=== PATIENT | male | born 1985 | race Caucasian/White ===

== ENCOUNTER 2018-09-04 12:07 | Emergency (ER) | payer OTHER ==
[2018-09-04 12:21] VITALS: BMI 34.0
[2018-09-04] MEDS ORDERED: Sodium Chloride 0.9% 1,000 ML IV ONE (13:03)
[2018-09-04 13:21] LABS: EOS # 0.1 K/uL (0.0-0.7); EOS % 1.7 % (0.0-4.0); HEMOGLOBIN 16.2 g/dL (12.0-18.0); LYMPH # 2.2 K/uL (1.0-4.3); LYMPH % 53.1 % (20.0-40.0); MEAN CELL VOLUME 76.9 fL (80.0-94.0); MEAN CORPUSCULAR HEMOGLOBIN 25.5 pg (27.0-31.0); MEAN CORPUSCULAR HGB CONC 33.1 g/dL (33.0-37.0); MEAN PLATELET VOLUME 9.6 fL (7.2-11.7); MONO # 0.4 K/uL (0.0-0.8); MONO % 10.6 % (0.0-10.0); NEUT # 1.4 K/uL (1.8-7.0); NEUT % 33.6 % (50.0-75.0); NRBC % 0.1 % (0.0-2.0); RBC 6.35 Mil/uL (4.40-5.90); RED CELL DISTRIBUTION WIDTH 14.1 % (11.5-14.5); WHITE BLOOD COUNT 4.2 K/uL (4.8-10.8)
--- NOTE | 2018-09-04 13:35 | RAD ---
Date of service: 09/04/2018 HISTORY: Shortness of breath COMPARISON: No prior. TECHNIQUE: Chest PA and lateral FINDINGS: LINES AND TUBES: None. LUNG AND PLEURA: The lungs are well inflated and clear. No pleural effusion or pneumothorax. HEART AND MEDIASTINUM: The heart is not enlarged. No aortic atherosclerotic calcifications present. The hilar and mediastinal contours are within normal limits. SKELETAL STRUCTURES: The bony structures are within normal limits for the patient's age. VISUALIZED UPPER ABDOMEN: Normal. OTHER FINDINGS: None. IMPRESSION: No active pulmonary disease.
[2018-09-04 13:44] LABS: ALB/GLOB RATIO 1.4 (1.0-2.1); ALBUMIN 4.7 g/dL (3.5-5.0); ALT/SGPT 55 U/L (21-72); AST/SGOT 44 U/L (17-59); BLOOD UREA NITROGEN 12 mg/dL (9-20); CALCIUM 9.7 mg/dl (8.6-10.4); GFR NON-AFRICAN AMERICAN > 60
[2018-09-04 13:52] LABS: SQUAMOUS EPITHIAL 3 /hpf (0-5); URINE BILIRUBIN NEGATIVE (NEGATIVE); URINE BLOOD NEGATIVE (NEGATIVE); URINE CLARITY Hazy (Clear); URINE COLOR Yellow (YELLOW); URINE GLUCOSE (UA) NORMAL (Normal); URINE LEUKOCYTE ESTERASE NEG Leu/uL (Negative); URINE PROTEIN NEGATIVE (NEGATIVE)
--- NOTE | 2018-09-04 14:36 | C.PDOC ---
History Of Present Illness 32 y/o male with no significant PMHx presents to the ED for evaluation of intermittent episodes of "sudden-onset of shakiness, cold sweats, and feeling hungry" ongoing for the past 4-5 months. Last episode was this morning. Patient states the symptoms usually improve after sugar intake, however this morning they persisted after eating. At present time patient appears asymptomatic. Pt otherwise denies, LOC, syncope, severe headache, visual changes, neck pain, chest pain, SOB, dyspnea, palpitation, abdominal pain, nausea, vomiting, or diarrhea, denies previous card pathology. At present time, appears comfortable, not in any apparent distress. Time Seen by Provider: 09/04/18 12:20 Chief Complaint (Nursing): Medical Clearance History Per: Patient History/Exam Limitations: no limitations Onset/Duration Of Symptoms: Intermittent Episodes Current Symptoms Are (Timing): Gone Past Medical History Reviewed: Historical Data, Nursing Documentation, Vital Signs Vital Signs: Last Vital Signs Temp 99.1 F 09/04/18 12:22 Pulse 85 09/04/18 12:22 Resp 18 09/04/18 12:22 BP 142/83 09/04/18 12:22 Pulse Ox 99 09/04/18 12:22 Other Surgeries: Gastric sleeve surgery Family History: States: Unknown Family Hx - Social History Hx Alcohol Use: No Hx Substance Use: No - Immunization History Hx Tetanus Toxoid Vaccination: No Hx Influenza Vaccination: No Hx Pneumococcal Vaccination: No Review Of Systems Constitutional: Positive for: Sweats, Weakness, Other (Feeling hungry). Negative for: Fever Eyes: Negative for: Vision Change Cardiovascular: Negative for: Chest Pain, Palpitations Respiratory: Negative for: Shortness of Breath Gastrointestinal: Negative for: Nausea, Vomiting, Abdominal Pain, Diarrhea Musculoskeletal: Negative for: Back Pain Neurological: Negative for: Headache, Dizziness Physical Exam - Physical Exam Appears: Well, Non-toxic, No Acute Distress Skin: Normal Color, Warm, No Rash Head: Normacephalic Eye(s): bilateral: PERRL Nose: No Flaring Oral Mucosa: Moist Throat: No Drooling Neck: Trachea Midline, Supple Cardiovascular: Rhythm Regular, No Murmur, No JVD, Other ((-) carotid bruits B/L) Respiratory: No Decreased Breath Sounds, No Accessory Muscle Use, No Rales, No Rhonchi, No Wheezing Gastrointestinal/Abdominal: Soft, No Tenderness, No Distention, No Guarding, No Rebound Extremity: Normal ROM, No Pedal Edema, No Swelling Extremity: Bilateral: Atraumatic, Normal Color And Temperature, Normal ROM Neurological/Psych: Oriented x3, Normal Speech, Normal Motor, Normal Sensation, Normal Reflexes, Other (No focal deficits) ED Course And Treatment - Laboratory Results Result Diagrams: 09/04/18 13:16 09/04/18 13:16 Lab Results: Troponin I < 0.0120 ng/mL (0.00-0.120) 09/04/18 13:16 Total Bilirubin 0.6 mg/dL (0.2-1.3) 09/04/18 13:16 AST 44 U/L (17-59) 09/04/18 13:16 ALT 55 U/L (21-72) 09/04/18 13:16 Alkaline Phosphatase 99 U/L (38-126) 09/04/18 13:16 Total Protein 8.2 g/dL (6.3-8.3) 09/04/18 13:16 Albumin 4.7 g/dL (3.5-5.0) 09/04/18 13:16 Globulin 3.4 gm/dL (2.2-3.9) 09/04/18 13:16 Albumin/Globulin Ratio 1.4 (1.0-2.1) 09/04/18 13:16 Urine Color Yellow (YELLOW) 09/04/18 13:38 Urine Clarity Hazy (Clear) 09/04/18 13:38 Urine pH 6.0 (5.0-8.0) 09/04/18 13:38 Ur Specific [place] 1.021 (1.003-1.030) 09/04/18 13:38 Urine Protein Negative mg/dL (NEGATIVE) 09/04/18 13:38 Urine Glucose (UA) Normal mg/dL (Normal) 09/04/18 13:38 Urine Ketones Negative mg/dL (NEGATIVE) 09/04/18 13:38 Urine Blood Negative (NEGATIVE) 09/04/18 13:38 Urine Nitrate Negative (NEGATIVE) 09/04/18 13:38 Urine Bilirubin Negative (NEGATIVE) 09/04/18 13:38 Urine Urobilinogen 2.0 mg/dL (0.2-1.0) 09/04/18 13:38 Ur Leukocyte Esterase Neg Faye/uL (Negative) 09/04/18 13:38 Urine WBC (Auto) 1 /hpf (0-5) 09/04/18 13:38 Urine RBC (Auto) 1 /hpf (0-3) 09/04/18 13:38 Ur Squamous Epith Cells 3 /hpf (0-5) 09/04/18 13:38 Lab Interpretation: No Acute Changes ECG: Interpreted By Me, Viewed By Me O2 Sat by Pulse Oximetry: 99 (on RA) Pulse Ox Interpretation: Normal Progress Note: Labs, EKG, CXR ordered and reviewed. Patient given IV fluids. Pt was OBS in ED for 2 hrs and remained stable. On re-eval, afebrile, hemodynamicaly stable. Asymptomatic. CVS: (+)S1S2, reg. Lungs: CTA B/L, BS equal B/L. Neurologicaly intact. Blood work review and appears without acute abnormalities. Copies of results provided to pt, advised to F/u with PMD in 2-3 days for further re-evaluation. Pt is stable for discharge now. Disposition Counseled Patient/Family Regarding: Studies Performed, Diagnosis, Need For Followup - Disposition Referrals: [facility] [Outside] Disposition: HOME/ ROUTINE Disposition Time: 14:35 Condition: STABLE Additional Instructions: Encourage fluids Follow up with PMD in 2-3 days for re-evaluation and further treatment as need return to ED if any worsening or new changes. 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 - Scribe Statement The provider has reviewed the documentation as recorded by the Scribcoby Desai All medical record entries made by the Scribe were at my direction and personally dictated by me. I have reviewed the chart and agree that the record accurately reflects my personal performance of the history, physical exam, medical decision making, and the department course for this patient. I have also personally directed, reviewed, and agree with the discharge instructions and disposition.
[2018-09-04 14:45] VITALS: BP 123/79; PULSE 75; RESP 20; TEMP 98.8
[2018-09-04 14:48] VITALS: O2SAT 99
== END 2018-09-04 14:48 | disposition home or self-care (01) ==
LOC: C.ER 12:07
DX: R42 Dizziness and giddiness (principal)
CPT/HCPCS: 71046; 80053; 81001; 82948; 84484; 85025; 96360; 99283; J7030